=== PATIENT | male | born 2000 | race Caucasian/White ===

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

== ENCOUNTER 2024-04-08 15:01 | Emergency (ER) | payer OTHER, SELFPAY ==
[2024-04-08] VITALS (17 sets, daily range): BP systolic 112–141; BP diastolic 66–86; PULSE 57–105; RESP 12–21; TEMP 36.6–36.7; O2SAT 97–100; BMI 24.3
--- NOTE | 2024-04-08 15:11 | NURSING ---
CALLED [facility]
--- NOTE | 2024-04-08 15:50 | CT_ITS ---
STUDY: CTA OF THE LEFT LOWER EXTREMITY REASON FOR EXAM: Male, 23 years old. chain saw injury RADIATION DOSAGE (If Supplied By Facility): CTDIvol = ( 5.88 ) mGy, DLP = ( 539.74 ) mGycm TECHNIQUE: Axial CT angiography multi-detector data acquisition was obtained from the aortic bifurcation to the left foot following intravenous administration of 100CC ISOVUE 370. Axial images and MIP images were reconstructed from the axial data set. Post-processing of the angiographic images was performed, with multiplanar reformation and 3D reconstruction. COMPARISON: None. FINDINGS: Vasculature: Left common femoral artery: No demonstrated narrowing. Left profundus femoris: No demonstrated narrowing. Left superficial femoral: No demonstrated narrowing. Left popliteal artery: No demonstrated narrowing. Left tibioperoneal trunk: Not visualized Left anterior tibial artery: Not visualized Left posterior tibial artery: Not visualized Left peroneal artery: Not visualized Soft tissue: Soft tissue injury with lacerations and subcutaneous emphysema along the lateral aspect of the lower thigh. Bones: No fracture or malalignment. Joints: Unremarkable. CT/CTA LWR EXTR W/O & W/DYE IMPRESSION: No vascular injury or fracture. Soft tissue injury involving the lateral aspect of the lower thigh. Electronically Signed: Chris Otto MD at 17:28 EDT ,
--- NOTE | 2024-04-08 16:06 | EDS_ITS ---
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 He is really not having pain he just noticed that there was a lot of bleeding, EMS was called placed tourniquet and transported him here. Tetanus Immunization: 5-10 years [facility] Medical History (Updated 04/08/24 @ 18:[address] Rajendra Javier MD) Thigh laceration Medical History no medical history no medical history Home Medications ?Medication ?Instructions ?Recorded ?Last Taken ?Type epinephrine 0.3 mg/0.3 mL 0.3 mg (0.3 mL) IM X1 ##2 06/25/18 Unknown Rx injection, auto-injector cephalexin 500 mg capsule 500 mg PO Q6 #21 CAPSULES 04/08/24 Unknown Rx Allergy/AdvReac Type Severity Reaction Status Date / Time ibuprofen Allergy Swelling Verified 04/08/24 15:08 Surgical History no surgical history Social History Smoking Status: Never smoker ROS ROS ED Constitutional Constitutional ED: Denies chills or fever(s) Musculoskeletal Musculoskeletal: Reports extremity pain; Denies neck pain Integumentary Reports wounds; Denies Abrasions or rash Neurologic Neurologic: Denies paresthesias or weakness EXAM Physical Exam Const Vital Signs: 04/08/24 15:03 04/08/24 15:07 04/08/24 15:18 Temperature 97.9 F 97.9 F Temperature Source Temporal Temporal Pulse Rate 85 92 105 H Respiratory Rate 15 Blood Pressure 141/71 H 141/76 H Blood Pressure Mean 94 97 Pulse Ox 100 99 100 Oxygen Delivery Method Room Air Room Air 04/08/24 15:23 04/08/24 15:30 04/08/24 15:45 Temperature Temperature Source Pulse Rate 71 84 76 Respiratory Rate 12 15 16 Blood Pressure 140/78 H 128/78 H 129/66 H Blood Pressure Mean 93 88 84 Pulse Ox 100 99 99 Oxygen Delivery Method 04/08/24 16:00 04/08/24 16:02 04/08/24 16:15 Temperature Temperature Source Pulse Rate 77 79 Respiratory Rate 13 14 Blood Pressure 129/71 H 127/68 H 127/68 H Blood Pressure Mean 84 87 85 Pulse Ox 98 99 Oxygen Delivery Method Room Air 04/08/24 16:38 04/08/24 16:45 04/08/24 17:00 Temperature Temperature Source Pulse Rate 76 Respiratory Rate 16 Blood Pressure 112/86 H Blood Pressure Mean 94 Pulse Ox 100 100 98 Oxygen Delivery Method Room Air 04/08/24 17:00 04/08/24 17:15 04/08/24 17:30 Temperature Temperature Source Pulse Rate 82 82 85 Respiratory Rate 13 13 21 H Blood Pressure Blood Pressure Mean Pulse Ox 98 99 97 Oxygen Delivery Method 04/08/24 17:45 04/08/24 18:00 Temperature Temperature Source Pulse Rate 70 57 L Respiratory Rate 13 14 Blood Pressure Blood Pressure Mean Pulse Ox 99 97 Oxygen Delivery Method Positive well nourished and well developed General Appearance ED: well developed and NAD Neck full ROM and supple Back/Spine normal ROM and normal to inspection Extremity Extremity Narrative: Deep laceration to the lateral aspect of the left thigh, it is in the distal th ird but not near the knee joint. Full range of motion of the knee intact, patient able to fully extend at the knee without difficulty, I can see part of the vastus lateralis flexing within the wound when the patient does this. Superficial to this, it appears that the tensor fascia ximena was severed. Initial evaluation-tourniquet in place, leg is purple discoloration distally. After removing the dressing and there is mild dark venous oozing, the tourniquet was released and there was no pulsatile bleeding or increase in bleeding at all. Therefore the tourniquet was left off. This was soon after the patient's arrival, approximately 30-40 minutes after tourniquet placement according to EMS. Neuro oriented x3, no focal motor deficits and no sensory deficits noted Neuro Narrative: Decreased sensation left lower extremity before tourniquet released, this resolved prior to the end of the patient's evaluation. Sensorium / Orientation: alert Psych mental status grossly normal and thought process normal Skin Skin Narrative: 10 cm full-thickness irregular laceration to the distal third lateral left thigh. Muscle, fascia seen within it, no arteries or nerves. Minimal contamination a single piece of grass that was removed. Rashes: no rashes MDM MDM MDM Narrative Medical decision making narrative: On initial evaluation, took the dressing down to release the tourniquet, there is no arterial bleeding the tourniquet was then left off, see the procedure note. The wound was repaired and cleansed, he was given 1 g of IV Ancef and his tetanus was updated. About 15 minutes after releasing the tourniquet, he still has a delayed cap refill in his foot, the dorsalis pedis pulses dopplerable but not easily palpable. Therefore obtain CT angiography of the left lower extremity, I reviewed the images and the report and I agree with it, it bas ically is negative for anything vascular, the wound on the CT appears about a superficial was a looks clinically, involving the vastus lateralis. I discussed all that with Dr. Larson with orthopedics, he agrees with antibiotics, crutches, outpatient follow-up. Lab Data Attestation: I reviewed the patient's lab results. Labs: Laboratory Results - last 24 hr 04/08/24 14:47 WBC 8.0 RBC 4.88 Hgb 14.9 Hct 43.0 MCV 88.1 MCH 30.5 MCHC 34.7 RDW Std Deviation 37.2 RDW Coeff of Ed 11.7 Plt Count 171 MPV 11.0 Immature Gran % (Auto) 0.100 Neut % (Auto) 73.3 H Lymph % (Auto) 19.3 [place] % (Auto) 5.9 Eos % (Auto) 1.0 Baso % (Auto) 0.4 Absolute Neuts (auto) 5.9 Absolute Lymphs (auto) 1.55 Nucleated RBC % 0 Sodium 140 Potassium 3.2 L Chloride 107 Carbon Dioxide 29.0 Anion Gap 4 L BUN 16 Creatinine 1.42 H Estim Creat Clear Calc 84.97 Est GFR (MDRD) Af Amer 81 Est GFR (MDRD) Non-Af 67 BUN/Creatinine Ratio 11.3 Glucose 100 Calcium 9.4 Radiography Diagnostic Testing: Clinical Impression(s) from Imaging Studies Lower Extremity CTA 04/08/24 15:50 IMPRESSION: No vascular injury or fracture. Soft tissue injury involving the lateral aspect of the lower thigh. Electronically Signed: Chris Otto MD at 17:28 EDT , Management Discussion w/another healthcare provider: Senior Research Scientist ( [facility]) Procedures Lacerations left lat thigh: Length: 10 cm Depth: Muscle Shape: Linear (mostly, with small jagged flaps most posterior aspect) Prep: Sterile Conditions and Chlorhexadine Laceration repair: Foreign material removed (small piece of grass), Irrigated, Lidocaine with epi (6cc), Local, Skin sutures and Wound explored (SQ tissue/muscle/fascia only) Irrigated (ml): 200 (under pressure) Number of Sutures/[place]: 8 Suture Information: Ethilon, Simple (#2), Horizontal, Mattress (#6) and 4- 0 Discharge Plan Triage Chief Complaint: Trauma ED Provider: Rajendra Javier Dx/Rx/DC Orders Clinical Impression: Laceration of other specified muscles, fascia and tendons at thigh level, left thigh, initial encounter, Contact with chainsaw as cause of accidental injury Instructions: Crutches Weight Bearing Dc, ED Laceration Extremity Prescriptions: New cephalexin 500 mg capsule 500 mg PO Q6 Qty: 21 0RF No Action epinephrine 0.3 MG syringe 0.3 mg IM X1 Qty: 2 0RF Primary Care Provider: Ila Cain Referrals: Randy Larson MD [Med Staff - Active Staff] - As soon as possible Print Language: Nauruan Disposition Disposition: Home, Self Care
[2024-04-08 16:09] LABS: Absolute Lymphocyte Count 1.55 X10^3/uL (0.83-4.51); Absolute Neutrophil Count 5.9 X10^3/uL (2.0-7.7); Basophil# 0.03 X10^3/uL; Basophil% 0.4 % (0-1); Eosinophil# 0.08 X10^3/uL; Hemoglobin 14.9 g/dL (13.0-16.5); Lymphocyte # 1.55 X10^3/ul (0.83-4.51); Lymphocyte % 19.3 % (19-41); Mean Corp Hgb Conc 34.7 g/dL (32-36); Mean Corpuscular Hgb 30.5 pg (27.0-32.0); Mean Corpuscular Volume 88.1 fL (80-94); Monocyte# 0.47 X10^3/uL; Monocyte% 5.9 % (0-10); NRBC Flagged by Analyzer 0 % (0-5); Neutrophil # 5.89 X10^3/uL (2.7-7.7); Neutrophil % 73.3 % (47-70); Platelet Count 171 K/mm3 (150-450); RBC Distribution Width CV 11.7 % (11.6-14.6); RBC Distribution Width SD 37.2 fl (35.1-43.9); Red Blood Count 4.88 M/mm3 (4.6-6.2)
[2024-04-08] MEDS: Diphth,Pertuss(Acell),Tet Vac 0.5 ML Vial IM (16:14)
[2024-04-08] MEDS: 0.9% Normal Saline (1000mL) 1,000 ML 999 ML IV (16:14)
[2024-04-08] MEDS: Cefazolin 1 GM/50 ML BAG IV (16:17)
[2024-04-08 16:22] LABS: Anion Gap 4 (5-15); BUN 16 mg/dL (7-18); BUN/Creat Ratio 11.3 RATIO (10-20); Calcium,Total 9.4 mg/dL (8.5-10.1); Chloride 107 mmol/L (98-107); Creatinine, Serum 1.42 mg/dL (0.70-1.30); EST Glomerular Filtration Rate 67 mL/min (>60); Est Glom Filt Rate - Afr Amer 81 mL/min (>60); Estimated Creatinine Clearance 84.97 ml/min; Glucose 100 mg/dL (74-106); Potassium 3.2 mmol/L (3.5-5.1); Sodium Level 140 mmol/L (136-145)
--- NOTE | 2024-04-08 16:43 | CONS.ORTHO ---
HPI Consult Data Date of Consult: 04/08/24 HPI Narrative HPI Narrative: GWEN GALLEGOS, is a 23 M who presents with a thigh laceration per ED provider. [facility] Medical History (Updated 04/08/24 @ 16:43 by Randy Larson MD) Thigh laceration Medical History no medical history Home Medications ?Medication ?Instructions ?Recorded ?Last Taken ?Type epinephrine 0.3 mg/0.3 mL 0.3 mg (0.3 mL) IM X1 ##2 06/25/18 Unknown Rx injection, auto-injector Allergy/AdvReac Type Severity Reaction Status Date / Time ibuprofen Allergy Swelling Verified 04/08/24 15:08 Surgical History no surgical history Social History Smoking Status: Never smoker Vital Signs Vital Signs Vital Signs: 04/08/24 15:03 04/08/24 15:07 04/08/24 16:02 Temperature 97.9 F 97.9 F Temperature Source Temporal Temporal Pulse Rate 85 92 77 Respiratory Rate 15 15 13 Blood Pressure 141/71 H 141/76 H 127/68 H Blood Pressure Mean 94 97 87 Pulse Ox 100 99 98 Oxygen Delivery Method Room Air Room Air Room Air Weight Weight: 169 lb 1.513 oz Body Mass Index (BMI) 24.3 Lab / Micro Data 04/08/24 14:47 04/08/24 14:47 Labs: Laboratory Results - last 24 hr 04/08/24 14:47: WBC 8.0, RBC 4.88, Hgb 14.9, Hct 43.0, MCV 88.1, MCH 30.5, MCHC 34.7, RDW Std Deviation 37.2, RDW Coeff of Ed 11.7, Plt Count 171, MPV 11.0, Immature Gran % (Auto) 0.100, Neut % (Auto) 73.3 H, Lymph % (Auto) 19.3, [place] % (Auto) 5.9, Eos % (Auto) 1.0, Baso % (Auto) 0.4, Absolute Neuts (auto) 5.9, Absolute Lymphs (auto) 1.55, Nucleated RBC % 0, Sodium 140, Potassium 3.2 L, Chloride 107, Carbon Dioxide 29.0, Anion Gap 4 L, BUN 16, Creatinine 1.42 H, Estim Creat Clear Calc 84.97, Est GFR (MDRD) Af Amer 81, Est GFR (MDRD) Non-Af 67, BUN/Creatinine Ratio 11.3, Glucose 100, Calcium 9.4 Assessment & Plan Assessment/Plan (1) Thigh laceration: PLAN: 23 yr M with thigh laceration. OK to follow as outpatient. Per ED doc still waiting on CTA but wound on lateral side. CTA will rule out fracture as well. Please let me know if anything beyond the muscle injury comes up. Otherwise provider has I and D and closed laceration, likely non op tx. Recommend tetanus and abx, follow up in clinic tomorrow AM.
[2024-04-08] MEDS: Lidocaine 1%/Epi 1:100 (30ml) 30 ML VIAL 5 ML INFILT (17:22)
== END 2024-04-08 19:01 | disposition home or self-care (01) ==
PROVIDERS: Emergency Provider Emergency Medicine; PCP Pediatrics; Visit Provider Emergency Medicine
DX: S76.922A Laceration of unspecified muscles, fascia and tendons at thigh level, left thigh, initial encounter (principal); W29.3XXA Contact with powered garden and outdoor hand tools and machinery, initial encounter; Z23 Encounter for immunization; Y93.89 Activity, other specified; Y99.0 Civilian activity done for income or pay; Y92.89 Other specified places as the place of occurrence of the external cause
CPT/HCPCS: 12004; 73706; 80048; 85025; 90715; 96365; 99284; J7030; Q9967

== ENCOUNTER 2024-04-09 09:04 | Emergency (ER) | payer OTHER, SELFPAY ==
[2024-04-09 09:04] VITALS: BP 129/67; PULSE 107; RESP 19; TEMP 35.8; O2SAT 100
[2024-04-09] MEDS: Lidocaine 1% (20 ml mdv) 20 ML Vial INFILT (09:56)
--- NOTE | 2024-04-09 10:01 | EDS_ITS ---
HPI History of Present Illness Chief Complaint: Wound Check Informant: patient Narrative Narrative: 23-year-old male presenting to the emergency room for wound check. Patient was seen yesterday in the emergency department with a chainsaw laceration to the lateral left thigh. He states that when he woke this morning something seemed wrong and looks like the wound has opened back up. Review of the chart shows that he had a CTA of the leg as well as repair of the laceration using 4-0 Ethilon sutures. These were performed in simple and horizontal mattress technique. He was prescribed Keflex but has not taken any yet. He denies any significant drainage from the wound notes there has been some bleeding. [facility] Medical History Thigh laceration Home Medications ?Medication ?Instructions ?Recorded ?Last Taken ?Type epinephrine 0.3 mg/0.3 mL 0.3 mg (0.3 mL) IM X1 ##2 06/25/18 Unknown Rx injection, auto-injector cephalexin 500 mg capsule 500 mg PO Q6 #21 CAPSULES 04/08/24 04/09/24 Rx hydrocodone-acetaminophen 5-325mg 1 tab PO Q6H PRN PRN Pain 3 days 04/09/24 Unknown Rx 5mg-325mg #10 TABLETS Allergy/AdvReac Type Severity Reaction Status Date / Time ibuprofen Allergy Swelling Verified 04/09/24 09:16 Social History Smoking Status: Never smoker ROS ROS ED Constitutional Constitutional ED: Denies chills or weight loss Eyes Eyes: Denies change in vision or diplopia ENT ENT ED: Denies ear pain, rhinorrhea or sore throat Cardiovascular Cardiovascular: Denies chest pain, orthopnea, palpitations or racing heartbeat Respiratory/Chest Respiratory/Chest: Denies cough, dyspnea or orthopnea Gastrointestinal Gastrointestinal: Denies abdominal pain, diarrhea, nausea or vomiting Genitourinary Genitourinary ED: Denies dysuria, hematuria or urinary frequency Musculoskeletal Musculoskeletal: Denies arthralgias or myalgias Integumentary Reports other Details: See history of present illness ; Denies abscess or rash Neurologic Neurologic: Denies headache(s) or weakness Psychiatric Psychiatric: Denies anxiety, depression, suicidal ideation or suicidal thoughts Endocrine Endocrinology: Denies polydipsia, polyphagia or polyuria Allergic/Immunologic Allergic/Immunologic ED: Denies mouth swelling, tongue swelling or urticaria EXAM Physical Exam Const Vital Signs: 04/09/24 09:04 04/09/24 11:27 Temperature 96.5 F L 98.1 F Temperature Source Temporal Pulse Rate 107 H 85 Respiratory Rate 19 H 17 Blood Pressure 129/67 H 117/59 L Blood Pressure Mean 87 78 Pulse Ox 100 97 Oxygen Delivery Method Room Air Positive well nourished and well developed General Appearance ED: well developed HEENT Reports normocephalic, head/scalp atraumatic and moist mucous membranes Eyes PERRL and EOMs intact bilaterally Neck no lymphadenopathy, supple and no JVD Resp normal respiratory effort and clear to auscultation bilaterally Cardio regular rate, regular rhythm and no murmurs GI normal to inspection, nondistended, normoactive bowel sounds and non-tender Palpation: soft Back/Spine no CVA tenderness and normal ROM Extremity Extremity Narrative: There is an approximately 10 cm long linear laceration to the lateral distal aspect of the left thigh. Appears that the anterior and medial aspect of the wound have dehisced. There is no significant erythema or purulence from the wound. There is some dried blood on the dressing. General Extremety ED: Negative for edema General Extremity: Negative for edema Neuro oriented x3 and CN's II-XII intact bilaterally Sensorium / Orientation: alert Motor Exam: strength 5/5 throughout Psych mental status grossly normal Mood & Affect: Negative for depressed or tearful Skin no rashes or lesions noted and no wounds MDM MDM MDM Narrative Medical decision making narrative: Patient's wounds were locally anesthetized. Upon further inspection it appears that the suture material was held and not broken as originally suspected. Looks like the inferior edge of the wound has flipped up and has become swollen given it a dehiscence look. I went ahead and remove the sutures. I irrigated and scrubbed the wound removing all clotted blood. The wound edge on the more posterior aspect the tissue appeared to be nonviable and I went ahead and revise the edging. I used 3-0 Ethilon simple interrupted sutures to approximate the wound edges. There was a smaller 4 cm laceration just inferior to the wound edge. This also was closed using 3-0 Ethilon suture. Wound was dressed with bacitracin Telfa Bucky and then Teddy wrap. Continue to use crutches. He will fill his antibiotics and will follow-up with orthopedics. Stitches will need to be removed 10 to 14 days. History & Record Review Discussion w/independent historian: Patient and Family Discharge Plan Triage Chief Complaint: Wound Check ED Provider: Grabiel Soria Dx/Rx/DC Orders Clinical Impression: Thigh laceration, Acute thigh pain Instructions: ED Laceration Extremity Prescriptions: New hydrocodone-acetaminophen 5-325 mg tablet 1 tab PO Q6H PRN PRN (Reason: Pain) 3 Days Qty: 10 0RF No Action epinephrine 0.3 MG syringe 0.3 mg IM X1 Qty: 2 0RF cephalexin 500 mg capsule 500 mg PO Q6 Qty: 21 0RF Primary Care Provider: Care Physician,No Primary Referrals: Randy Larson MD [Med Staff - Active Staff] - As soon as possible Care Physician,No Primary [Primary Care Provider] - Activity Restrictions/Additional Instructions: Antibiotic ointment at least 1 time per day. Please keep the wound clean and. Monitor for evidence of infection (drainage foul smell redness) Crutches until seen by orthopedics. Please take the entire course of antibiotics as prescribed Pain medication can cause numerous side effects including constipation fusion drowsiness. Please discuss side effects with your pharmacist. Discontinue if they occur Stitches will need to be removed in approximately 10 to 14 days Print Language: Tamazight Disposition Disposition: Home, Self Care Discharge Date/Time: 04/09/24 11:30
[2024-04-09] MEDS: HYDROcodone Bitartrate/Apap 5/325 Tablet PO (10:03)
[2024-04-09] MEDS: Cephalexin 250 MG Capsule 500 MG PO (10:04)
[2024-04-09 11:27] VITALS: BP 117/59; PULSE 85; RESP 17; TEMP 36.7; O2SAT 97
== END 2024-04-09 11:30 | disposition home or self-care (01) ==
PROVIDERS: Emergency Provider Emergency Medicine; Visit Provider Emergency Medicine
DX: S71.112A Laceration without foreign body, left thigh, initial encounter (principal); X58.XXXA Exposure to other specified factors, initial encounter
CPT/HCPCS: 12004; 99283